=== PATIENT | male | born 1985 | race African-American/Black ===

== ENCOUNTER 2017-03-06 02:34 | Emergency (ER) | payer SELFPAY ==
[~2017-03-06] VITALS: Ht 170.2 cm; Wt 74.4 kg
--- NOTE | ~2017-03-06 | CR72 ---
[facility] A Service of [facility] RADIOLOGY TEXT RESULTS PATIENT: SHAHRAM DONG LOCATION: [facility] : 85 UNIT #: [id number] AGE: [address]: Pastor Barrios DO SEX: M ORDER DR: [id number] [facility] [address] [place], [place] [address] [id number] MR#: [id number] Acc #: [id number] NAME: SHAHRAM DONG : 1985 SEX: M STUDY DATE/TIME: 03/06/2017 3:39 UNIT: [facility] ROOM: STUDY DESCRIPTION: CR Chest Single View Portable Attending Physician: Pastor Barrios D.O. Ordering Physician: Pastor Barrios D.O. Primary Care Physician: Jono Buchanan M.D. MEDICAL IMAGING REPORT This report is preliminary unless electronic signature is present EXAM Portable chest INDICATION Chest pain for the past 5 days. PROCEDURE Frontal view chest. COMPARISON None. FINDINGS Heart size upper limits of normal. Lungs are clear. No pleural fluid or pneumothorax. IMPRESSION No active process. Dictated by... Jurgen Allen M.D. THIS IS AN ELECTRONICALLY VERIFIED REPORT Jurgen Allen M.D. at 03/07/2017 9:56 PM CAITLYN/justo TD: 03/06/2017 11:18 JOB #: [id number] MEDICAL IMAGING REPORT Page 1 of 1 COPY
--- NOTE | ~2017-03-06 | EKG ---
PATIENT: SHAHRAM DONG UNIT #: [id number] Ventricular Rate: 58 BPM Atrial Rate: 58 BPM P-R Interval: 168 ms QRS Duration: 88 ms Q-T Interval: 420 ms QTC Calculation(Bezet): 412 ms P [place]: 60 degrees Calculated R [place]: 61 degrees Calculated T [place]: 44 degrees Diagnosis Line: Sinus bradycardia with sinus arrhythmia Diagnosis Line: Nonspecific ST and T wave abnormality Diagnosis Line: Abnormal ECG Diagnosis Line: No previous ECGs available Diagnosis Line: Confirmed by ENMANUEL COPE MD ([id number]) on Diagnosis Line: 03/08/2017 10:48:57 AM INTERPRETING MD: ANATOLIY RICO
[~2017-03-06 02:34] MED LIST: ALBUTEROL17 GM; ALBUTEROL17 GM INH; FLEXERIL10 M1 PO; LOTRIMIN 1% CR30 GM EXT; NAPROSYN500 MG PO
== END 2017-03-06 06:36 | disposition left against medical advice (07) ==
LOC: CED 02:34
DX: J45.909 Unspecified asthma, uncomplicated (principal)
CPT/HCPCS: 71010; 93005; 94640; 99285